=== PATIENT | male | born 1980 | race Caucasian/White ===

== ENCOUNTER 2017-04-19 09:08 | Emergency (ER) | payer BC ==
[2017-04-19 09:35] VITALS: BP 137/86
--- NOTE | 2017-04-19 09:52 | UC ---
Throat Pain/Nasal Dave HPI - HPI Summary HPI Summary: sore throat x 1 week. also with muscle aches and pains for a week. has nasal congestion and nonprod cough .denies fever/chills taking nyquil otc without relief. - History of Current Complaint Chief Complaint: UCRespiratory Stated Complaint: ST Time Seen by Provider: 04/19/17 09:43 Hx Obtained From: Patient Onset/Duration: Lasting Weeks Severity: Moderate Cough: Nonproductive Associated Signs & Symptoms: Positive: Negative - Epiglottits Risk Factors Epiglottis Risk Factors: Negative - Allergies/Home Medications Allergies/Adverse Reactions: Allergies Allergy/AdvReac Type Severity Reaction Status Date / Time No Known Allergies Allergy Verified 04/19/17 09:35 PMH/Surg Hx/FS Hx/Imm Hx - Additional Past Medical History Additional PMH: very vague about sympotoms . told nurse he had no muscle aches but when i asked he said he did Previously Healthy: Yes - Surgical History Surgical History: Yes Surgery Procedure, Year, and Place: HERNIA REPAIR - Social History Alcohol Use: Daily Alcohol Amount: 1 drink Substance Use Type: None Smoking Status (MU): Never Smoked Tobacco - Immunization History Most Recent Tetanus Shot: 2004 Review of Systems Constitutional: Fatigue Skin: Negative Eyes: Negative ENT: Sore Throat, Sinus Congestion Respiratory: Cough Cardiovascular: Negative Gastrointestinal: Negative Genitourinary: Negative Motor: Negative Neurovascular: Negative Musculoskeletal: Myalgia Neurological: Negative Psychological: Negative Is Patient Immunocompromised?: No All Other Systems Reviewed And Are Negative: Yes Physical Exam Triage Information Reviewed: Yes Appearance: Ill-Appearing Vital Signs: Initial Vital Signs Temp 98.2 F 04/19/17 09:30 Pulse 55 04/19/17 09:30 Resp 14 04/19/17 09:30 BP 137/86 04/19/17 09:30 Pulse Ox 99 04/19/17 09:30 Vital Signs Reviewed: Yes Eye Exam: Normal ENT: Positive: Pharyngeal erythema, TM bulging - both ears, Hoarse voice Respiratory Exam: Normal Cardiovascular Exam: Normal Musculoskeletal Exam: Normal Neurological Exam: Normal Psychological Exam: Normal Skin Exam: Normal Throat Pain/Nasal Course/Dx - Course Course Of Treatment: strep swab done - results negative. doesnt want flu swab - sx could be flu - treat symptoms. take tylenol or ibuprofen every 4-6 hours prn pain/fever - dose as directed on bottle. take zpack for congestion. f/u pcp 1 week if symptoms not resolving - Differential Dx/Diagnosis Provider Diagnoses: sinusitis. possible flu Discharge - Discharge Plan Condition: Good Disposition: HOME Prescriptions: Azithromycin TAB* [Zithromax TAB (Z-RM) 250 mg #6 tabs] 2 tab PO .TODAY, THEN 1 DAILY 5 Days #1 rm Patient Education Materials: Sinusitis (ED), Influenza (ED) Referrals: Mary Adams [Primary Care Provider] - 1 Week
== END 2017-04-19 10:18 | disposition home or self-care (01) ==
LOC: UCCORT 09:08
DX: J32.9 Chronic sinusitis, unspecified (principal); Z72.89 Other problems related to lifestyle
CPT/HCPCS: 87651; 99212; G0463

== ENCOUNTER 2017-04-27 07:20 | Emergency (ER) | payer BC ==
[2017-04-27 08:01] VITALS: BP 136/90
--- NOTE | 2017-04-27 08:26 | ED ---
Throat Pain/Nasal Congestion - HPI Summary HPI Summary: Patient presents to the with sore throat and nasal congestion. He was seen here last week and strep negative and given a zithromax. Symptoms have not improved with abx. Denies fevers, sweats or chills. He is otherwise healthy, but endorses sick contacts. Throat is rated 8/10 and is his #1 complaint. He has been able to continue to work. Denies runny nose or chest pain. - History of Current Complaint Chief Complaint: UCRespiratory Time Seen by Provider: 04/27/17 08:09 Hx Obtained From: Patient Onset/Duration: Gradual Onset Severity: Moderate Associated Signs And Symptoms: Negative: Dysphagia, Drooling, Wheezing, Hoarseness Cough: Nonproductive - Epiglottits Risk Factors Epiglottis Risk Factors: Negative - Allergies/Home Medications Allergies/Adverse Reactions: Allergies Allergy/AdvReac Type Severity Reaction Status Date / Time No Known Allergies Allergy Verified 04/27/17 08:01 PMH/Surg Hx/FS Hx/Imm Hx Previously Healthy: Yes - Surgical History Surgery Procedure, Year, and Place: HERNIA REPAIR Infectious Disease History: No Infectious Disease History: Denies: Traveled Outside the [place] in Last 30 Days - Social History Occupation: Employed Full-time Lives: With Family Alcohol Use: Daily Alcohol Amount: 1 drink Hx Substance Use: No Substance Use Type: Reports: None Hx Tobacco Use: No Smoking Status (MU): Never Smoked Tobacco Review of Systems Positive: Fever, Chills Positive: Sore Throat, Ear Ache Cardiovascular: Negative Positive: Cough Gastrointestinal: Negative Genitourinary: Negative Positive: no symptoms reported, see HPI Musculoskeletal: Negative Skin: Negative Neurological: Negative Psychological: Normal All Other Systems Reviewed And Are Negative: Yes Physical Exam Vital Signs On Initial Exam: Initial Vitals Temp Pulse Resp BP Pulse Ox 98.3 F 53 14 136/90 100 04/27/17 07:55 04/27/17 07:55 04/27/17 07:55 04/27/17 07:55 04/27/17 07:55 Diagnostics - Vital Signs Vital Signs Temp Pulse Resp BP Pulse Ox 04/27/17 07:55 98.3 F 53 14 136/90 100 - Laboratory Lab Statement: Any lab studies that have been ordered have been reviewed, and results considered in the medical decision making process. EENT Course/Dx - Course Course Of Treatment: Strep negative. He is given decongestants for treatment. Instructions given. Prednisone 50mg x 5 days. Sudafed and flonase. Patient is OK with discharge at this time. - Diagnoses Provider Diagnoses: Pharyngitis, Congested nose Discharge - Discharge Plan Condition: Stable Disposition: HOME Prescriptions: Fluticasone NASAL SPRAY 50MCG* [Flonase NASAL SPRAY 50MCG*] 2 spray BOTH NARES DAILY #1 btl predniSONE TAB* [Deltasone TAB*] 50 mg PO DAILY #5 tab MDD 1 Pseudoephedrine HCl [Sudafed 24 Hour] 240 mg PO DAILY #10 tab Patient Education Materials: Pseudoephedrine (By mouth), Pharyngitis (ED), Nasal Rinse (ED) Referrals: Non Staff,Doctor [Primary Care Provider] - Additional Instructions: Follow up with your PCP If symptoms become worse - return to the ED or Sudafed daily in the AM Prednisone daily in the AM Flonase 1-2 puffs each nare twice daily Warm compresses to the sinus cavities Humidifier in the home will help open up the airways If you begin to feel more chest congestion, I recommend mucinex 24 hour Cepacol tabs (in the cough drop section) and chloraseptic spray Tylenol 650mg three times daily will help with the throat discomfort as well
== END 2017-04-27 08:32 | disposition home or self-care (01) ==
LOC: UCCORT 07:20
DX: J02.9 Acute pharyngitis, unspecified (principal); R09.81 Nasal congestion
CPT/HCPCS: 87651; 99212; G0463

== ENCOUNTER 2018-03-17 13:19 | Emergency (ER) | payer BC ==
[2018-03-17 13:38] VITALS: BP 142/84
--- NOTE | 2018-03-17 13:47 | UC ---
Hand/Wrist HPI - HPI Summary HPI Summary: Pt presents with c/o sudden onset of right hand pain that began after doing several pullups while exercising 4 days ago. Pt states he does frequent pull up manuevers for exercise and at work. Now has tender "ball" in right hand mid- hand between metacarpals 4 &5. Pt is right handed, denies any decrease in rom or contracture or previous injury. - History Of Current Complaint Chief Complaint: UCUpperExtremity Stated Complaint: RIGHT HAND INJURY Time Seen by Provider: 03/17/18 13:31 Hx Obtained From: Patient ?: No Onset/Duration: Sudden Onset, Lasting Days, Still Present Severity Initially: Moderate Severity Currently: Moderate Pain Intensity: 7 Character Of Pain: Dull, Aching Aggravating Factor(s): Movement Alleviating Factor(s): Rest, Ice Associated Signs And Symptoms: Positive: Swelling Related History: Dominant Hand Right - Risk Factors Compartment Syndrome Risk Factors: Pain - Allergies/Home Medications Allergies/Adverse Reactions: Allergies Allergy/AdvReac Type Severity Reaction Status Date / Time No Known Allergies Allergy Verified 03/17/18 13:31 Home Medications: Home Medications NK [No Home Medications Reported] 03/17/18 [History Confirmed 03/17/18] PMH/Surg Hx/FS Hx/Imm Hx Previously Healthy: Yes - Surgical History Surgical History: Yes Surgery Procedure, Year, and Place: HERNIA REPAIR - Social History Occupation: Employed Full-time Lives: With Family Alcohol Use: Weekly Alcohol Amount: 1 drink Substance Use Type: None Smoking Status (MU): Never Smoked Tobacco Have You Smoked in the Last Year: No - Immunization History Most Recent Tetanus Shot: 2004 Review of Systems All Other Systems Reviewed And Are Negative: Yes Constitutional: Positive: Negative Skin: Positive: Negative Eyes: Positive: Negative ENT: Positive: Negative Respiratory: Positive: Negative Cardiovascular: Positive: Negative Gastrointestinal: Positive: Negative Genitourinary: Positive: Negative Motor: Positive: Negative Neurovascular: Positive: Negative Musculoskeletal: Positive: Arthralgia, Edema, Myalgia Neurological: Positive: Negative Psychological: Positive: Negative Is Patient Immunocompromised?: No Physical Exam Triage Information Reviewed: Yes Appearance: Well-Appearing Vital Signs: Initial Vital Signs Temp 98.3 F 03/17/18 13:32 Pulse 65 03/17/18 13:32 Resp 14 03/17/18 13:32 BP 142/84 03/17/18 13:32 Pulse Ox 100 03/17/18 13:32 Vital Signs Reviewed: Yes Eye Exam: Normal ENT Exam: Normal ENT: Positive: Hearing grossly normal Dental Exam: Normal Neck exam: Normal Respiratory: Positive: No respiratory distress Musculoskeletal: Positive: Other: - palpable sft round mass in right hand, at mid hand between metacarpals 4&5. pt has full ROM, no contracture, mild swelling and appearnce of "ridge" on palm of hand. Hand/Wrist Course/Dx - Differential Dx/Diagnosis Differential Diagnosis/HQI/PQRI: Tendonitis Provider Diagnosis: Right hand tendonitis, Neuroma of hand Discharge - Sign-Out/Discharge Documenting (check all that apply): Patient Departure All imaging exams completed and their final reports reviewed: No Studies - Discharge Plan Condition: Stable Disposition: HOME Patient Education Materials: Arthralgia (ED), Ice Pack Application (ED) Referrals: Cassie Hein PA [Primary Care Provider] - If Needed Kaylene Kasper MD [Medical Doctor] - As Soon As Possible - Billing Disposition and Condition Condition: STABLE Disposition: Home
== END 2018-03-17 14:04 | disposition home or self-care (01) ==
LOC: UCCORT 13:19
DX: M77.9 Enthesopathy, unspecified (principal); D36.12 Benign neoplasm of peripheral nerves and autonomic nervous system, upper limb, including shoulder
CPT/HCPCS: 99211; G0463

== ENCOUNTER 2018-06-21 08:37 | Emergency (ER) | payer BC ==
[2018-06-21 09:08] VITALS: BP 136/89
--- NOTE | 2018-06-21 09:18 | UC ---
Throat Pain/Nasal Dave HPI - HPI Summary HPI Summary: Patient presents to urgent care reporting right ear pain and progressive sore throat. Patient with been sick for approximately 3 weeks. Patient saw his primary 2 weeks ago) viral syndrome. Patient states at this time he had congestion cough green sputum, body aches. Patient's been taking over-the- counter antipyretics and decongestant. Patient states he has been improving overall except for the right ear started 2 days ago. Patient's been eating and drinking okay. 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 Patient is not immunocompromised. Patient does have a remote history of Guillain [place] - does not get influenza vaccine. Patient's medications reviewed this visit. - History of Current Complaint Chief Complaint: UCGeneralIllness Stated Complaint: ST,COUGH,RT EAR PAIN Time Seen by Provider: 06/21/18 09:12 Hx Obtained From: Patient Onset/Duration: Gradual Onset Severity: Moderate Pain Intensity: 7 Pain Scale Used: 0-10 Numeric Associated Signs & Symptoms: Positive: Sinus Discomfort - Allergies/Home Medications Allergies/Adverse Reactions: Allergies Allergy/AdvReac Type Severity Reaction Status Date / Time No Known Allergies Allergy Verified 06/21/18 09:03 Home Medications: Home Medications D-Methorphan/PE/Acetaminophen [Daytime Cold-Flu Liquid] 1 dose PO ONCE PRN 06/21 [History Confirmed 06/21/18] Dm/Acetaminophen/Doxylamine [Nighttime Cold and Flu Liquid] 1 dose PO ONCE PRN 06/21/18 [History Confirmed 06/21/18] PMH/Surg Hx/FS Hx/Imm Hx - Additional Past Medical History Additional PMH: Guillain-[place] Previously Healthy: Yes - Surgical History Surgical History: Yes Surgery Procedure, Year, and Place: HERNIA REPAIR - Family History Known Family History: Positive: Non-Contributory - Social History Occupation: Employed Full-time - [employer] Alcohol Use: Occasionally Alcohol Amount: 1 drink Substance Use Type: None Smoking Status (MU): Never Smoked Tobacco Have You Smoked in the Last Year: No - Immunization History Most Recent Tetanus Shot: 2004 Review of Systems All Other Systems Reviewed And Are Negative: Yes Constitutional: Positive: Fatigue ENT: Positive: Sore Throat, Ear Ache, Nasal Discharge, Sinus Congestion Respiratory: Positive: Cough Is Patient Immunocompromised?: No Physical Exam - Summary Physical Exam Summary: Vital Signs Reviewed: Yes A+Ox3, no distress Eyes: Conjunctiva Clear, FAIZA. EOM intact and full ENT: Hearing grossly normal scant fluid left ear, right ear ++ erythema, fluid , left with fluid, no erythema turbiantes boggy, PND, mmoist, uvula midline, no exudate, no erythema Neck: Positive: Supple Respiratory: Positive: No respiratory distress, No accessory muscle use + CTA throughout no w/r Cardiovascular: RRR nl s1, s2 no m/r CBT <2 sec abd soft + BS nt/nd no guarding, no distension Musculoskeletal Exam: FARLEY x 4 without difficulty Strength Intact, ROM Intact Neurological: Positive: Alert, + sensation throughout Psychological: Positive: Normal Response To Family Skin: Positive: no rash, no ecchymosis Triage Information Reviewed: Yes Vital Signs: Initial Vital Signs Temp 97.4 F 06/21/18 09:04 Pulse 56 06/21/18 09:04 Resp 16 06/21/18 09:04 BP 136/89 06/21/18 09:04 Pulse Ox 100 06/21/18 09:04 Throat Pain/Nasal Course/Dx - Course Course Of Treatment: Patient presents to urgent care reporting been sick for 3 weeks. Patient saw his primary 2 weeks ago was told viral. Patient at that time had congestion cough productive of green sputum and fatigue. Patient also had body aches. He states he is improved except for last 3 days has progressive right ear pain continues sore throat. She's been taking [id number] decongestants and Mucinex. Patient denies fevers or chills recently. 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 On exam patient clinically has a right otitis media. We'll start patient on amoxicillin, flonase. Discussed with patient hydration, secretion precautions, Motrin/Tylenol, return precautions. Patient comfortable in agreement with plan. 4 - Differential Dx/Diagnosis Provider Diagnosis: Otitis media Discharge - Sign-Out/Discharge Documenting (check all that apply): Patient Departure All imaging exams completed and their final reports reviewed: No Studies - Discharge Plan Condition: Stable Disposition: HOME Prescriptions: Amoxicillin PO (*) [Amoxicillin 875 MG (*)] 875 mg PO BID #20 tab Fluticasone NASAL SPRAY 50MCG* [Flonase NASAL SPRAY 50MCG*] 2 spray BOTH NARES DAILY #1 btl Patient Education Materials: Ear Infection (ED), Upper Respiratory Infection ( ED) Referrals: Cassie Hein PA [Primary Care Provider] - Additional Instructions: - Stay well hydrated. Drink plenty of non-alcoholic, non-caffinated beverages. - Alternate ibuprofen (Advil, Motrin) 600mg and Tylenol every 3 hours for pain or fever. Take with food. Do NOT take for more than 4-5 days. - These infections are spread by secretions - do NOT share eating or drinking utensils - clean items you share with other people such as cell phones, computer mouse, TV remote, computer tablets,etc. Once you have been on antibiotics for 2 days, start to feel better, change your toothbrush and your pillowcase. - get plenty of restful sleep - humidify the air in the room where you sleep - boil water, run a hot steam shower, vaporizer, cups of water by heat register - okay to take over the counter decongestant and cough medication - use nasal spray as instructed - contact your doctor or return with questions or concerns - Billing Disposition and Condition Condition: STABLE Disposition: Home - Attestation Statements Provider Attestation: I was available for consult. This patient was seen by the MAYCOL. The patient was not presented to, seen by, or examined by me. -Ann
== END 2018-06-21 09:39 | disposition home or self-care (01) ==
LOC: UCCORT 08:37
DX: H66.91 Otitis media, unspecified, right ear (principal); J02.9 Acute pharyngitis, unspecified; R05 Cough; R09.81 Nasal congestion
CPT/HCPCS: 99212; G0463

== ENCOUNTER 2018-11-04 16:30 | Emergency (ER) | payer BC ==
[2018-11-04 16:48] VITALS: BP 132/80
--- NOTE | 2018-11-04 17:25 | UC ---
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 no numbing in saddle area. -has h/o GBS from influenza in past, recovered well. - History of Current Complaint Chief Complaint: UCBackPain Stated Complaint: BACK COMPLAINT Time Seen by Provider: 11/04/18 17:09 Pain Intensity: 7 - Allergies/Home Medications Allergies/Adverse Reactions: Allergies Allergy/AdvReac Type Severity Reaction Status Date / Time No Known Allergies Allergy Verified 11/04/18 16:47 PMH/Surg Hx/FS Hx/Imm Hx Previously Healthy: Yes - Surgical History Surgical History: Yes Surgery Procedure, Year, and Place: HERNIA REPAIR - Family History Known Family History: Positive: Non-Contributory - Social History Alcohol Use: Occasionally Alcohol Amount: 3 times a week drinks a couple beers Substance Use Type: None Smoking Status (MU): Never Smoked Tobacco Have You Smoked in the Last Year: No - Immunization History Most Recent Tetanus Shot: 2004 Review of Systems All Other Systems Reviewed And Are Negative: Yes Constitutional: Positive: Negative Skin: Positive: Negative Eyes: Positive: Negative ENT: Positive: Negative Cardiovascular: Positive: Negative Gastrointestinal: Positive: Negative Genitourinary: Positive: Negative Motor: Positive: Decreased ROM Neurovascular: Positive: Negative. Negative: Decreased Sensation, Decreased Pulses Musculoskeletal: Positive: Decreased ROM, Myalgia. Negative: Arthralgia, Calf Tenderness Neurological: Positive: Negative. Negative: Weakness, Paresthesia, Numbness Psychological: Positive: Negative Is Patient Immunocompromised?: No Physical Exam Triage Information Reviewed: Yes Appearance: Well-Appearing, No Pain Distress, Well-Nourished - very pleasant, good historian. Vital Signs: Initial Vital Signs Temp 97.6 F 11/04/18 16:43 Pulse 66 11/04/18 16:43 Resp 14 11/04/18 16:43 BP 132/80 11/04/18 16:43 Pulse Ox 100 11/04/18 16:43 Vital Signs Reviewed: Yes Eye Exam: Normal Respiratory Exam: Normal Respiratory: Positive: Lungs clear, Normal breath sounds, No respiratory distress, No accessory muscle use Cardiovascular Exam: Normal Cardiovascular: Positive: RRR Abdominal Exam: Normal Musculoskeletal: Positive: ROM Limited @ - flexion more limited than extension. b/l muscle Neurological Exam: Normal Psychological Exam: Normal Skin Exam: Normal Back Pain Course/Dx - Course Course Of Treatment: no trauma, no meurological sx or radiculitis. sx localized. dx localized low back muscle strain -heat/ice/nsaids/ muscle relaxant -declines OOW note -stay mobile but no lifting or strain until sx resolve -ER w/ any cauda equina sx that have been explained. -very agreeable. - Differential Dx/Diagnosis Differential Diagnosis/HQI/PQRI: Strain, Sprain Provider Diagnosis: Strain of muscle, fascia and tendon of lower back, initial encounter Discharge - Sign-Out/Discharge Documenting (check all that apply): Patient Departure All imaging exams completed and their final reports reviewed: No Studies - Discharge Plan Condition: Stable Disposition: HOME Prescriptions: Ibuprofen TAB* [Motrin TAB* 800 MG] 800 mg PO Q8H PRN 10 Days #30 tab PRN Reason: Pain - Moderate Methocarbamol TAB* [Robaxin 500 MG TAB*] 500 mg PO TID PRN 10 Days #30 tab PRN Reason: Pain - Mild Patient Education Materials: Low Back Strain (ED) Referrals: Cassie Hein PA [Primary Care Provider] - 1 Week Additional Instructions: You have been given a prescription for muscle relaxant methocarbomol and ibuprofen to take every 8 hrs as needed. You can try heat or ice and see which helps the most. Please go directly to ER immediately if you develop any loss of bowel or bladder function or develop any numbing in the area that you sit on. - Billing Disposition and Condition Condition: STABLE Disposition: Home
== END 2018-11-04 17:45 | disposition home or self-care (01) ==
LOC: UCCORT 16:30
DX: S39.012A Strain of muscle, fascia and tendon of lower back, initial encounter (principal); X50.0XXA Overexertion from strenuous movement or load, initial encounter; Y93.B3 Activity, free weights; Y92.89 Other specified places as the place of occurrence of the external cause
CPT/HCPCS: 99212; G0463